=== PATIENT | male | born 1940 | race Caucasian/White ===

== ENCOUNTER 2022-06-25 08:38 | Outpatient (CLI) | payer MEDICARE, SELFPAY ==
[2022-06-25 13:48] LABS: Albumin* 4.5 g/dL (3.3-5.0)
[2022-06-25 13:49] LABS: Chloride* 103 mmol/L (96-114); Potassium* 4.5 mmol/L (3.6-5.1); Sodium* 139 mmol/L (135-149)
[2022-06-25 13:51] LABS: Bilirubin Total* 0.8 mg/dL (0.1-1.5); Carbon Dioxide* 24 mmol/L (20-32); Cholesterol* 108 mg/dL (90-199); Creatinine* 0.8 mg/dL (0.5-1.5); Estimated Glomerular Filt Rate 90 ml/min; Total Protein* 6.9 g/dL (6.0-8.3)
[2022-06-25 13:52] LABS: Alanine Aminotransferase* 24 U/L (4-50); Alkaline Phosphatase* 67 U/L (40-150); Aspartate Amino Transferase* 30 U/L (12-35); Blood Urea Nitrogen* 14 mg/dL (7-30); Glucose* 182 mg/dL (60-115); HDL Cholesterol* 19 mg/dL (>=40); LDL Cholesterol Calculated 48 mg/dL (<100); Triglycerides* 206 mg/dL (40-149)
[2022-06-25 14:00] LABS: Creatinine Urine 104.3 mg/dL
[2022-06-25 14:01] LABS: Microalbumin Creatinine Ratio 80 mg/g (0-30); Microalbumin Urine 9 mg/dL
[2022-06-25 14:18] LABS: PSA Screen* 4.11 ng/mL (0.10-4.00)
== END 2022-06-25 08:39 | disposition home or self-care (01) ==
PROVIDERS: PCP Family Medicine; Visit Provider Family Medicine
DX: E11.9 Type 2 diabetes mellitus without complications (principal); E78.00 Pure hypercholesterolemia, unspecified; K21.9 Gastro-esophageal reflux disease without esophagitis; N40.0 Benign prostatic hyperplasia without lower urinary tract symptoms; R10.9 Unspecified abdominal pain; R53.83 Other fatigue; Z12.5 Encounter for screening for malignant neoplasm of prostate
CPT/HCPCS: 80053; 80061; 82043; 82570; 84153; 84443

== ENCOUNTER 2022-11-29 11:06 | Emergency (ER) | payer MEDICARE, OTHER, SELFPAY ==
[2022-11-29 11:12] VITALS: BP 148/75; PULSE 86; RESP 20; TEMP 36.3; O2SAT 96; BMI 30.9
--- NOTE | 2022-11-29 11:53 | CRLHL7_ITS ---
For Patients: As a result of the Century Cures Act, medical imaging exams and procedure reports are released immediately into your electronic medical record. You may view this report before your referring provider. If you have questions, please contact your health care provider. INDICATION: Vertigo. TECHNIQUE: CT head without contrast. COMPARISON: None. FINDINGS: CSF spaces: Mild diffuse parenchymal volume loss, not unexpected for age. Brain parenchyma and extra-axial spaces: Mild chronic white matter ischemic disease. The eason-white differentiation is normal. No sign of mass, hemorrhage, or midline shift. No extra-axial fluid collection. Skull base and calvarium: Complete opacification of the visualized left maxillary sinus. Additional mild mucoperiosteal thickening of the right maxillary sinus and bilateral ethmoidal air cells which could suggest sinusitis. Otherwise, the visualized paranasal sinuses and mastoid air cells demonstrate no acute or significant findings. Bilateral lens replacement. The visualized orbits are grossly unremarkable. No skull fractures. IMPRESSION: No acute intracranial abnormality on this noncontrast CT scan. Please note that all CT scans at this facility use dose modulation, iterative reconstruction, and/or weight-based dosing when appropriate to reduce radiation dose to as low as reasonably achievable. Dictated by Eitan Bullock MD @ 11/29/2022 1:39:01 PM (Electronically Signed)
--- NOTE | 2022-11-29 11:56 | ED.DIZZY ---
HPI - Dizziness General Chief Complaint: Dizziness/Vertigo Stated Complaint: Dizzy, exhaustion Time Seen by Provider: 11/29/22 11:09 History of Present Illness HPI Narrative: This 82-year-old male comes in at the urging of his family members to be checked out regarding some symptoms vertigo. These occur occasionally but not constantly. He states that he felt some vertigo symptoms when he was up on a ladder recently. He does not report any chest pain, nausea, vomiting, lightheadedness, shortness of breath, or diaphoresis. He states that he exercises on a treadmill 40 minutes every day without any difficulty or symptoms. He does not have any neurologic deficit. He does not report any hearing changes. Related Data Home Medications Medication Instructions Recorded Confirmed aspirin 81 mg tablet,delayed 81 mg PO QDAY 06/25/22 11/29/22 release calcium carbonate 600 mg calcium 600 mg PO QDAY 06/25/22 11/29/22 (1,500 mg) tablet (Calcium) metformin 500 mg tablet 500 mg PO 06/25/22 08/05/22 rosuvastatin 10 mg tablet 10 mg PO DAILY 06/25/22 11/29/22 vit C 250 mg-vit E 200 unit-zinc 1 tab PO BID 06/25/22 08/05/22 12.5 mg-copper 1 [id number] tablet (ICaps AREDS2 (copper citrate)) Previous Rx's Medication Instructions Recorded omeprazole 20 mg capsule,delayed 20 mg PO QDAY #90 caps 06/25/22 release tamsulosin 0.4 mg capsule 0.4 mg PO DAILY #90 caps 06/25/22 escitalopram oxalate 10 mg tablet 10 mg PO QDAY #90 tabs 08/05/22 (Lexapro) sennosides 8.6 mg-docusate sodium 1 tab-cap PO QHS #90 tabs 08/05/22 50 mg tablet (Senokot-S) meclizine 25 mg tablet 25 mg PO QID #20 tabs 11/29/22 Allergies Allergy/AdvReac Type Severity Reaction Status Date / Time No Known Drug Allergies Allergy Verified 08/05/22 10:05 Review of Systems Status of ROS: Reports: 10 or more systems reviewed and unremarkable except as noted in History and below Narrative: Constitutional: No fevers, no weight gain or loss. Eyes: No discharge. No vision changes. HENT: No congestion, no sore throat, no ear pain. Cardiovascular: No chest pain, no palpitations. Respiratory: No shortness of breath, no wheezes, no cough. Gastrointestinal: No abdominal pain, no vomiting, no diarrhea. Genitourinary: No dysuria, no hematuria. Musculoskeletal: Normal range of motion. Skin: No rashes, no pruritis. Neurological: No weakness, sensory change, speech change. He reports episodes of vertigo. Endo/Heme/Allergies: No bruising or bleeding. No polydipsia. Pysch: no suicidality, no anxiety, no insomnia. All other systems reviewed and are negative. [facility] Medical History (Updated 11/29/22 @ 13:57 by Elver Lyn MD) Constipation by delayed colonic transit Depression Surgical History (Updated 06/25/22 @ 15:16 by Lea Aviles) History of laparoscopic cholecystectomy (03/04/12) History of spinal surgery (08/18/09) History of tonsillectomy and adenoidectomy S/P ORIF (open reduction internal fixation) fracture (08/14/09) Status post appendectomy (08/18/09) Status post bunionectomy Family History (Updated 06/21/22 @ 15:27 by Ophelia Cox) Mother Diverticulitis Father Osteoarthritis Social History (Updated 06/21/22 @ 15:28 by Ophelia Cox) Narrative: , non smoker, occasional alcohol consumption Smoking Status: Former smoker How often do you have a drink containing alcohol: 2-4 times a month AUDIT-C Alcohol total score: 2 Non-prescribed substance use: denies use Little interest or pleasure in doing things: several days Feeling down, depressed, or hopeless: several days Exam Narrative: Exam Narrative: Constitutional: Well-developed, well-nourished, no acute distress. HEENT: Normocephalic, atraumatic. Neck: Normal range of motion. Nontender. Supple. Heart: Regular. No murmurs. Normal rate. Intact distal pulses. Lungs: Clear to auscultation. No chest discomfort. No wheezes, rhonchi, or rales. Abdomen: Normal bowel sounds. Nontender. No rebound tenderness. Genitalia: Deferred. Back: No midline tenderness. Normal range of motion. Extremities: Normal range of motion. No injury. Skin: Intact. No rash. Warm. No erythema or pallor. Neurologic: No altered sensation. No weakness. Alert and oriented. No facial asymmetry. Tongue is midline. [employer] Tender strength is equal bilaterally. [id number] is normal. No pronator drift. He is able to raise each leg from the bed. He is speaking and ambulating normally. Psychiatric: No suicidality. No anxiety or depression. No insomnia. Nursing notes and vitals signs are reviewed. Const: Vital Signs, click to edit/add: Vital Signs - 24 hr 11/29/22 11:12 11/29/22 13:37 Temperature 97.4 F L Pulse Rate [Pulse Oximeter] 86 70 Respiratory Rate 20 18 Blood Pressure [Ri ght Upper Arm] 148/75 H 120/62 Pulse Oximetry 96 96 Oxygen Delivery Me thod Room Air Room Air Course Vital Signs Vital signs: Initial Vital Signs Temperature 97.4 F L 11/29/22 11:12 Temperature Source Temporal Artery Scan 11/29/22 11:12 Pulse Rate 86 11/29/22 11:12 Respiratory Rate 20 11/29/22 11:12 Blood Pressure 148/75 H 11/29/22 11:12 Blood Pressure Mean 99 11/29/22 11:12 Blood Pressure Position Supine 11/29/22 11:12 Pulse Oximetry 96 11/29/22 11:12 Oxygen Delivery Method 11/29/22 11:12 Vital Signs Temperature 97.4 F L 11/29/22 11:12 Pulse Rate 86 11/29/22 11:12 Respiratory Rate 20 11/29/22 11:12 Blood Pressure 148/75 H 11/29/22 11:12 Pulse Oximetry 96 11/29/22 11:12 Oxygen Delivery Method 11/29/22 11:12 Temperature 97.4 F L 11/29/22 11:12 Pulse Rate 70 11/29/22 13:37 Respiratory Rate 18 11/29/22 13:37 Blood Pressure 120/62 11/29/22 13:37 Pulse Oximetry 96 11/29/22 13:37 Oxygen Delivery Method 11/29/22 13:37 MDM - Dizziness MDM Narrative Medical decision making narrative: This patient comes in reporting brief episodes of vertigo that it seemed to be positional. He states that he was up on a ladder and lost some of his orientation but did not fall. He has had other episodes where he feels like the room is spinning or there is a sense of movement. He does not have any symptoms of lightheadedness. He does not use a walker or cane for ambulation. He states that he feels fine currently but comes in because family members think that he should be checked out. So a CT scan of his head was ordered which returns with no acute findings. Additionally EKG and lab results also are reassuring. These results are communicated with the patient. I did prescribe meclizine that can be used as needed for vertigo symptoms. His symptoms of vertigo or peripheral and not central in orientation. I did describe signs and symptoms of cerebrovascular accident that would indicate need for return very soon for further evaluation. He is not showing any of these signs and is okay to be discharged home. Lab Data Labs: Lab Results 11/29/22 11/29/22 Range/Units 12:05 12:05 WBC 5.77 (4.50-11.00) K/uL RBC 4.51 (4.30-5.90) m/uL Hgb 13.5 (13.5-17.5) gm/dL Hct 39.7 (37.0-53.0) % MCV 88 (80-100) fL MCH 30 (26-34) pg MCHC 34 (32-36) gm/dL RDW Coeff of Brittni 12.9 (11.5-15.5) % Plt Count 222 (140-440) K/uL Neut % (Auto) 49.5 (42.0-72.0) % Lymph % (Auto) 40.4 (20-44) % [place] % (Auto) 6.2 (0.0-11.0) % Eos % (Auto) 3.6 (0.0-7.0) % Baso % (Auto) 0.3 (0.0-3.0) % Neut # (Auto) 2.85 (1.7-7.0) K/uL Lymph # (Auto) 2.33 (0.90-2.90) K/uL [place] # (Auto) 0.40 (0.00-0.90) K/UL Eos # (Auto) 0.21 (0.00-0.50) K/uL Baso # (Auto) 0.02 (0.00-0.30) K/uL Sodium 138 (135-149) mmol/L Potassium 4.5 (3.6-5.1) mmol/L Chloride 102 (96-114) mmol/L Carbon Dioxide 27 (20-32) mmol/L BUN 12 (7-30) mg/dL Creatinine 0.8 (0.5-1.5) mg/dL Estimated Creat Clear 57.00 Estimated GFR 89 ml/min Glucose 201 H (60-115) mg/dL Calcium 8.8 (8.4-10.6) mg/dL Imaging Data CT scan - head: Radiologist's impression: No acute intracranial abnormality on this noncontrast CT scan. ECG Data Attestation: I personally reviewed and interpreted this ECG as follows: Interpretation: Normal sinus rhythm. Rate is 82 beats per minute. There are no ST or T-wave abnormalities. Discharge Plan Discharge Clinical Impression: Vertigo Patient Disposition: Home, Self-Care Condition: Stable Additional Instructions: Continue current plans. Use meclizine as needed and directed for vertigo symptoms. Follow up with MD or return if worsening. Prescriptions: New meclizine 25 mg tablet 25 mg PO QID Qty: 20 0RF No Action escitalopram oxalate [Lexapro] 10 mg tablet 10 mg PO QDAY Qty: 90 1RF sennosides-docusate sodium [Senokot-S] 8.6-50 mg tablet 1 tab-cap PO QHS Qty: 90 3RF calcium carbonate [Calcium 600] 600 mg calcium (1,500 mg) tablet 600 mg PO QDAY rosuvastatin 10 mg tablet 10 mg PO DAILY metformin 500 mg tablet 500 mg PO aspirin 81 mg tablet,delayed release (DR/EC) 81 mg PO QDAY ICaps AREDS2 (copper citrate) 250 mg-200 unit -12.5 mg-1 mg tablet 1 tab PO BID omeprazole 20 mg capsule,delayed release(DR/EC) 20 mg PO QDAY Qty: 90 1RF tamsulosin 0.4 mg capsule 0.4 mg PO DAILY Qty: 90 3RF Follow Up/Referrals: Bob Gonzalez MD [Primary Care Provider] - Stand Alone Forms: [facility] Info Instructions
[2022-11-29 12:12] LABS: Basophils Absolute Auto 0.02 K/uL (0.00-0.30); Basophils Percent Auto 0.3 % (0.0-3.0); Eosinophils Absolute Auto 0.21 K/uL (0.00-0.50); Eosinophils Percent Auto 3.6 % (0.0-7.0); Hematocrit 39.7 % (37.0-53.0); Hemoglobin* 13.5 gm/dL (13.5-17.5); Lymphocytes Absolute Auto 2.33 K/uL (0.90-2.90); Lymphocytes Percent Auto 40.4 % (20-44); Mean Corpuscular HGB Conc 34 gm/dL (32-36); Mean Corpuscular Hemoglobin 30 pg (26-34); Mean Corpuscular Volume 88 fL (80-100); Monocytes Percent Auto 6.2 % (0.0-11.0); Neutrophils Absolute Auto 2.85 K/uL (1.7-7.0); Neutrophils Percent Auto 49.5 % (42.0-72.0); Platelet Count* 222 K/uL (140-440); RDW Coefficient of Variation % 12.9 % (11.5-15.5); Red Blood Count 4.51 m/uL (4.30-5.90); White Blood Count* 5.77 K/uL (4.50-11.00)
[2022-11-29 12:26] LABS: Chloride* 102 mmol/L (96-114); Slide Review Reflex No; Sodium* 138 mmol/L (135-149)
[2022-11-29 12:27] LABS: Potassium* 4.5 mmol/L (3.6-5.1)
[2022-11-29 12:29] LABS: Carbon Dioxide* 27 mmol/L (20-32); Creatinine* 0.8 mg/dL (0.5-1.5); Estimated Glomerular Filt Rate 89 ml/min
[2022-11-29 12:30] LABS: Blood Urea Nitrogen* 12 mg/dL (7-30); Calcium* 8.8 mg/dL (8.4-10.6); Glucose* 201 mg/dL (60-115)
[2022-11-29 13:37] VITALS: BP 120/62; PULSE 70; RESP 18; O2SAT 96
== END 2022-11-29 14:11 | disposition home or self-care (01) ==
PROVIDERS: Emergency Provider Emergency Medicine Emergency Medical Services; PCP Family Medicine
DX: R42 Dizziness and giddiness (principal)
CPT/HCPCS: 36415; 70450; 80048; 85025; 93005; 99284

== ENCOUNTER 2023-04-04 22:19 | Emergency (ER) | payer MEDICARE, OTHER, SELFPAY ==
[2023-04-04] VITALS (7 sets, daily range): BP systolic 129–142; BP diastolic 72–75; PULSE 69–80; RESP 16; TEMP 36.3; O2SAT 94–97; BMI 30.6
[2023-04-04 23:06] LABS: Appearance Urine Slightly Cloudy (Clear); Bilirubin Urine Negative (Negative); Blood Urine 3+ (Negative); Color Urine Amber (Yellow); Glucose Urine Negative (Negative); Ketones Urine Negative (Negative); Leukocyte Esterase Urine Trace (Negative); Nitrite Urine Negative (Negative); Protein Urine 1+ (Negative); Urobilinogen Urine 0.2 (0.2-1.0)
--- NOTE | 2023-04-04 23:09 | CRLHL7_ITS ---
For Patients: As a result of the Century Cures Act, medical imaging exams and procedure reports are released immediately into your electronic medical record. You may view this report before your referring provider. If you have questions, please contact your health care provider. INDICATION: Abdominal pain, hematuria. TECHNIQUE: CT abdomen and pelvis without contrast. COMPARISON: 03/01/2012. FINDINGS: Lower chest: Mild bibasilar atelectasis. Coronary artery calcifications. Liver: Normal in size and attenuation. Gallbladder and bile ducts: Status post cholecystectomy. Spleen: Normal in size. Adrenal glands: Normal in size. No nodules. Pancreas: Unremarkable. No mass or inflammation. Kidneys: Normal in size. No stones or hydronephrosis. GI tract: Unremarkable. Normal in caliber. Appendix is surgically absent. Lymph nodes: No lymphadenopathy. Vasculature: Scattered atherosclerotic calcifications. Abdominal aorta is normal in caliber. Abdominal wall/Omentum/Peritoneum: Unremarkable. No free air or significant free fluid. Pelvis: Marked prostatomegaly. Posterior urinary bladder wall nodularity. Bones: Unremarkable for age. IMPRESSION: 1. Posterior urinary bladder wall nodularity which, which may be due to median lobe hypertrophy versus underlying lesion. Consider correlation with direct visualization. 2. Marked prostatomegaly. Consider correlation with serum PSA levels. 3. Otherwise no acute abdominal or pelvic abnormality on this noncontrast examination. Please note that all CT scans at this facility use dose modulation, iterative reconstruction, and/or weight-based dosing when appropriate to reduce radiation dose to as low as reasonably achievable. Dictated by Manfred Zhang MD @ 04/05/2023 12:19:18 AM (Electronically Signed)
[2023-04-04 23:20] LABS: RBC Urine >100 (0-2); WBC Urine 0-2 (0-5)
[2023-04-04 23:39] LABS: Basophils Absolute Auto 0.03 K/uL (0.00-0.30); Basophils Percent Auto 0.4 % (0.0-3.0); Eosinophils Percent Auto 4.3 % (0.0-7.0); Hematocrit 39.4 % (37.0-53.0); Hemoglobin* 13.2 gm/dL (13.5-17.5); Immature Granulocytes Abs Auto 0.01 K/uL (0.00-0.30); Immature Granulocytes Pct Auto 0.1 %; Lymphocytes Percent Auto 41.3 % (20-44); Mean Corpuscular HGB Conc 34 gm/dL (32-36); Mean Corpuscular Hemoglobin 30 pg (26-34); Mean Corpuscular Volume 88 fL (80-100); Monocytes Percent Auto 7.7 % (0.0-11.0); Neutrophils Absolute Auto 3.25 K/uL (1.7-7.0); Neutrophils Percent Auto 46.2 % (42.0-72.0); Platelet Count* 215 K/uL (140-440); RDW Coefficient of Variation % 13.2 % (11.5-15.5); Red Blood Count 4.47 m/uL (4.30-5.90); White Blood Count* 7.03 K/uL (4.50-11.00)
[2023-04-04] MEDS: 0.9 % SODIUM CHLORIDE 1000 ml 1,000 ML IV (23:40)
[2023-04-04 23:41] LABS: Slide Review Reflex No
--- NOTE | 2023-04-04 23:49 | ED_ITS ---
HPI - Male Genitourinary General Chief complaint: Urogenital Problems, Male Stated complaint: Peeing out blood Time Seen by Provider: 04/04/23 23:04 History of Present Illness HPI Narrative: Patient is a 82-year-old gentleman who presents with gross hematuria. Patient had exquisite mid abdominal pain earlier today. That seems to have resolved. Patient is been very active today including walking on the treadmill and feels like he may have overdone it. Patient has no fevers no chills no night sweats no cough no shortness of breath. He feels washed out but has no further abdominal pain. Patient is status post TURP and does take a baby aspirin daily. He has had no history of kidney stones and otherwise been in his usual good state of health. Related Data Home Medications Medication Instructions Recorded Confirmed aspirin 81 mg tablet,delayed 81 mg PO QDAY 06/25/22 04/04/23 release calcium carbonate 600 mg calcium 600 mg PO QDAY 06/25/22 04/04/23 (1,500 mg) tablet (Calcium) metformin 500 mg tablet 500 mg PO 06/25/22 08/05/22 rosuvastatin 10 mg tablet 10 mg PO DAILY 06/25/22 04/04/23 vit C 250 mg-vit E 200 unit-zinc 1 tab PO BID 06/25/22 04/04/23 12.5 mg-copper 1 [id number] tablet (ICaps AREDS2 (copper citrate)) carboxymethylcellulose sodium 1 % 1 drp ophthalmic (eye) DAILY 04/04/23 04/04/23 eye liquid gel drops (Lubricant Dry Eye Relief) Previous Rx's Medication Instructions Recorded omeprazole 20 mg capsule,delayed 20 mg PO QDAY #90 caps 06/25/22 release tamsulosin 0.4 mg capsule 0.4 mg PO DAILY #90 caps 06/25/22 escitalopram oxalate 10 mg tablet 10 mg PO QDAY #90 tabs 08/05/22 (Lexapro) sennosides 8.6 mg-docusate sodium 1 tab-cap PO QHS #90 tabs 08/05/22 50 mg tablet (Senokot-S) Allergies Allergy/AdvReac Type Severity Reaction Status Date / Time No Known Drug Allergies Allergy Verified 04/04/23 22:51 Review of Systems Status of ROS: Reports: 10 or more systems reviewed and unremarkable except as noted in History and below [facility] Medical History Constipation by delayed colonic transit ?K59.01 - Slow transit constipation (ICD-10) Depression ?F32.A - Depression, unspecified (ICD-10) Surgical History S/P ORIF (open reduction internal fixation) fracture (08/14/09) ?Z98.890 - Other specified postprocedural states (ICD-10) ?Z87.81 - Personal history of (healed) traumatic fracture (ICD-10) Status post bunionectomy ?Z98.890 - Other specified postprocedural states (ICD-10) Status post appendectomy (08/18/09) ?Z90.49 - Acquired absence of other specified parts of digestive tract (ICD- 10) History of tonsillectomy and adenoidectomy ?Z90.89 - Acquired absence of other organs (ICD-10) History of spinal surgery (08/18/09) ?Z98.890 - Other specified postprocedural states (ICD-10) History of laparoscopic cholecystectomy (03/04/12) ?Z90.49 - Acquired absence of other specified parts of digestive tract (ICD- 10) Family History Mother Diverticulitis Father Osteoarthritis Social History Narrative: , non smoker, occasional alcohol consumption Smoking Status: Former smoker Do you use any of these nicotine containing products: None Second hand tobacco smoke exposure: No How often do you have a drink containing alcohol: 2-4 times a month AUDIT-C Alcohol total score: 2 Non-prescribed substance use: denies use Little interest or pleasure in doing things: several days Feeling down, depressed, or hopeless: several days Exam 2 Narrative: Exam Narrative: EXAM GENERAL: Patient appears comfortable and well. EYES: No scleral icterus. LYMPH: No supraclavicular or cervical lymphadenopathy. SKIN: Visible skin seen during exam normal or with benign process only. EXT: No dependent lower extremity pedal edema. HEART: Regular rate and rhythm with no murmurs, rubs, or gallops. LUNGS: Clear to auscultation bilaterally with no crackles or wheezes. ABD: Soft, non tender, non distended. PSYCH: Good eye contact, speech is not pressured. Const: Vital Signs, click to edit/add: Vital Signs - 24 hr 04/04/23 22:43 04/04/23 23:00 04/04/23 23:01 Temperature 97.3 F L Pulse Rate 80 72 Pulse Rate [Pulse Oximeter] 72 Respiratory Rate 16 Blood Pressure 142/75 H Blood Pressure [Ri ght Upper Arm] 139/73 Pulse Oximetry 96 94 96 Oxygen Delivery Me thod Room Air Room Air 04/04/23 23:15 04/04/23 23:30 04/04/23 23:32 Temperature Pulse Rate 73 78 76 Pulse Rate [Pulse Oximeter] Respiratory Rate Blood Pressure 129/72 Blood Pressure [Ri ght Upper Arm] Pulse Oximetry 97 96 96 Oxygen Delivery Me thod 04/04/23 23:59 04/05/23 00:00 04/05/23 00:01 Temperature Pulse Rate 69 71 70 Pulse Rate [Pulse Oximeter] Respiratory Rate Blood Pressure 120/72 Blood Pressure [Ri ght Upper Arm] Pulse Oximetry 95 96 96 Oxygen Delivery Me thod 04/05/23 00:15 04/05/23 00:30 Temperature Pulse Rate 67 68 Pulse Rate [Pulse Oximeter] Respiratory Rate Blood Pressure Blood Pressure [Ri ght Upper Arm] Pulse Oximetry 95 96 Oxygen Delivery Me thod Course Course Hospital Course: Hydration begun with normal saline. CBC comprehensive metabolic panel UA CT of the abdomen pelvis ordered. Vital Signs Vital signs: Initial Vital Signs Temperature 97.3 F L 04/04/23 22:43 Temperature Source Temporal Artery Scan 04/04/23 22:43 Pulse Rate 72 04/04/23 22:43 Respiratory Rate 16 04/04/23 22:43 Blood Pressure 139/73 04/04/23 22:43 Blood Pressure Mean 95 04/04/23 22:43 Blood Pressure Position Supine 04/04/23 22:43 Pulse Oximetry 96 04/04/23 22:43 Oxygen Delivery Method Room Air 04/04/23 22:43 Vital Signs Temperature 97.3 F L 04/04/23 22:43 Pulse Rate 72 04/04/23 22:43 Respiratory Rate 16 04/04/23 22:43 Blood Pressure 139/73 04/04/23 22:43 Pulse Oximetry 96 04/04/23 22:43 Oxygen Delivery Method Room Air 04/04/23 22:43 Temperature 97.3 F L 04/04/23 22:43 Pulse Rate 68 04/05/23 00:30 Respiratory Rate 16 04/04/23 22:43 Blood Pressure 120/72 04/05/23 00:01 Pulse Oximetry 96 04/05/23 00:30 Oxygen Delivery Method Room Air 04/04/23 23:00 MDM - Male Genitourinary MDM Narrative Medical decision making narrative: Patient is a 82-year-old gentleman comes in today stating that he has been urinating blood today. He feels overall kind of washed out like he has been working too hard. I did do CT of the abdomen pelvis showing no kidney stones but evidence of some nodularity in his bladder. Patient shows no signs of anemia his coags are unremarkable. Electrolytes are stable. Patient was given a L of normal saline and at this time is discharged home with outpatient followup discontinuation of his aspirin and follow-up with his primary physician to arrange Urology workup. He will return if symptoms worsen in the interim. Differential Diagnosis Differential diagnosis: Likely urinary tract infection, urethritis, prostatitis and acute retention of urine Lab Data Labs: Lab Results 04/04/23 04/04/23 Range/Units 22:55 23:30 WBC 7.03 (4.50-11.00) K/uL RBC 4.47 (4.30-5.90) m/uL Hgb 13.2 L (13.5-17.5) gm/dL Hct 39.4 (37.0-53.0) % MCV 88 (80-100) fL MCH 30 (26-34) pg MCHC 34 (32-36) gm/dL RDW Coeff of Brittni 13.2 (11.5-15.5) % Plt Count 215 (140-440) K/uL Neut % (Auto) 46.2 (42.0-72.0) % Lymph % (Auto) 41.3 (20-44) % [place] % (Auto) 7.7 (0.0-11.0) % Eos % (Auto) 4.3 (0.0-7.0) % Baso % (Auto) 0.4 (0.0-3.0) % Neut # (Auto) 3.25 (1.7-7.0) K/uL Lymph # (Auto) 2.90 (0.90-2.90) K/uL [place] # (Auto) 0.50 (0.00-0.90) K/UL Eos # (Auto) 0.30 (0.00-0.50) K/uL Baso # (Auto) 0.03 (0.00-0.30) K/uL Abs Immat Gran (auto) 0.01 (0.00-0.30) K/uL Imm/Tot Granulo (auto) 0.1 % INR 0.90 L (0.91-1.10) APTT 29 (23-33) Seconds Sodium 137 (135-149) mmol/L Potassium 3.6 (3.6-5.1) mmol/L Chloride 102 (96-114) mmol/L Carbon Dioxide 26 (20-32) mmol/L BUN 18 (7-30) mg/dL Creatinine 0.9 (0.5-1.5) mg/dL Estimated Creat Clear 57.00 Estimated GFR 86 ml/min Glucose 189 H (60-115) mg/dL Calcium 8.6 (8.4-10.6) mg/dL Total Bilirubin 0.4 (0.1-1.5) mg/dL AST 31 (12-35) U/L ALT 28 (4-50) U/L Alkaline Phosphatase 60 (40-150) U/L Total Protein 6.7 (6.0-8.3) g/dL Albumin 4.0 (3.3-5.0) g/dL Urine Color Tamra A (Yellow) Urine Appearance Slightly Cloudy A (Clear) Urine pH 6.0 (5.0-8.5) Ur Specific [place] 1.020 (1.000-1.030) Urine Protein 1+ A (Negative) Urine Glucose (UA) Negative (Negative) Urine Ketones Negative (Negative) Urine Blood 3+ A (Negative) Urine Nitrite Negative (Negative) Urine Bilirubin Negative (Negative) Urine Urobilinogen 0.2 (0.2-1.0) Ur Leukocyte Esterase Trace A (Negative) Urine RBC >100 A (0-2) Urine WBC 0-2 (0-5) Ur Squamous Epith Cells None (None-Few) Urine Bacteria None (None) Discharge Plan Discharge Clinical Impression: Hematuria Patient Disposition: Home, Self-Care Condition: Stable Instructions: Hematuria (ED) Additional Instructions: Stop aspirin Follow-up with your doctor this week to arrange Urology follow-up. Activity Level: No Restrictions Discharge Diet: Regular Prescriptions: No Action escitalopram oxalate [Lexapro] 10 mg tablet 10 mg PO QDAY Qty: 90 1RF Hold Instructions: Order Change sennosides-docusate sodium [Senokot-S] 8.6-50 mg tablet 1 tab-cap PO QHS Qty: 90 3RF Hold Instructions: Order Change calcium carbonate [Calcium 600] 600 mg calcium (1,500 mg) tablet 600 mg PO QDAY rosuvastatin 10 mg tablet 10 mg PO DAILY Hold Instructions: Ran out of medication metformin 500 mg tablet 500 mg PO aspirin 81 mg tablet,delayed release (DR/EC) 81 mg PO QDAY ICaps AREDS2 (copper citrate) 250 mg-200 unit -12.5 mg-1 mg tablet 1 tab PO BID Hold Instructions: Order Change omeprazole 20 mg capsule,delayed release(DR/EC) 20 mg PO QDAY Qty: 90 1RF Hold Instructions: Order Change tamsulosin 0.4 mg capsule 0.4 mg PO DAILY Qty: 90 3RF carboxymethylcellulose sodium [Lubricant Dry Eye Relief] 1 % drops, liquid gel 1 drp ophthalmic (eye) DAILY Follow Up/Referrals: Bob Gonzalez MD [Primary Care Provider] - Stand Alone Forms: [employer] Info Instructions
[2023-04-04 23:52] LABS: Chloride* 102 mmol/L (96-114)
[2023-04-04 23:53] LABS: Potassium* 3.6 mmol/L (3.6-5.1); Sodium* 137 mmol/L (135-149)
[2023-04-04 23:55] LABS: Aspartate Amino Transferase* 31 U/L (12-35); Bilirubin Total* 0.4 mg/dL (0.1-1.5); Carbon Dioxide* 26 mmol/L (20-32); Creatinine* 0.9 mg/dL (0.5-1.5); Estimated Glomerular Filt Rate 86 ml/min; Prothrombin Time 12.7 Seconds; Total Protein* 6.7 g/dL (6.0-8.3)
[2023-04-04 23:56] LABS: Alanine Aminotransferase* 28 U/L (4-50); Alkaline Phosphatase* 60 U/L (40-150); Blood Urea Nitrogen* 18 mg/dL (7-30); Calcium* 8.6 mg/dL (8.4-10.6); Glucose* 189 mg/dL (60-115); Partial Thromboplastin Time* 29 Seconds (23-33)
[2023-04-05] VITALS: PULSE 71; O2SAT 96
[2023-04-05 00:01] VITALS: BP 120/72; PULSE 70; O2SAT 96
[2023-04-05 00:15] VITALS: PULSE 67; O2SAT 95
[2023-04-05 00:30] VITALS: PULSE 68; O2SAT 96
== END 2023-04-05 00:44 | disposition home or self-care (01) ==
PROVIDERS: Emergency Provider Internal Medicine; PCP Family Medicine
DX: R31.9 Hematuria, unspecified (principal)
CPT/HCPCS: 36415; 74176; 80053; 81001; 81003; 85025; 85610; 85730; 96360; 99283; 99284; J7030

== ENCOUNTER 2023-04-11 11:35 | Outpatient (CLI) | payer MEDICARE, OTHER, SELFPAY | END 2023-04-11 11:36 | disposition home or self-care (01) | LOC: LKVREF 11:37 | PROVIDERS: PCP Family Medicine; Visit Provider Family Medicine | DX: R31.9 Hematuria, unspecified (principal); E11.9 Type 2 diabetes mellitus without complications; N40.0 Benign prostatic hyperplasia without lower urinary tract symptoms | CPT/HCPCS: 84153 ==

== ENCOUNTER 2023-07-25 08:47 | Outpatient (CLI) | payer MEDICARE, OTHER, SELFPAY | END 2023-07-25 08:48 | disposition home or self-care (01) | PROVIDERS: PCP Family Medicine; Visit Provider Family Medicine | DX: R53.83 Other fatigue (principal); E78.00 Pure hypercholesterolemia, unspecified; E11.9 Type 2 diabetes mellitus without complications; M10.9 Gout, unspecified; M81.0 Age-related osteoporosis without current pathological fracture; R33.8 Other retention of urine | CPT/HCPCS: 80053; 80061; 82043; 82570 ==

== ENCOUNTER 2024-01-27 08:32 | Outpatient (CLI) | payer MEDICARE, OTHER, SELFPAY ==
--- OUTSIDE RECORDS SUMMARY | 2024-01-27 08:35 | XMS_ITS | Clinical Summary ---
Author Name Unknown Organization [employer] [facility] Address [place], [place] [address] Care Team Providers Care Epic Prelude Analyst Name Role Phone Isaac Dennison MD Primary Care Provider + Allergies No known active allergies Medications Medication Sig Dispensed Refills Start Date End Date Status predniSONE (DELTASONE) 5 mg tablet Take 1 tablet by mouth once daily with a meal. 0 05/28/2017 Active tamsulosin (Flomax) 0.4 mg capsuleIndications: Benign non-nodular prostatic hyperplasia with lower urinary tract symptoms Take one tablet by mouth twice day. 180 capsule. 08/06/2021 Active clotrimazole (LOTRIMIN) 1 % creamIndications:Ba lanitis Apply topically to affected area(s) 2 times daily. 45 g 08/06/2021 Active Active Problems Problem Noted Date Diagnosed Date Benign non-nodular prostatic hyperplasia with lower urinary tract symptoms 05/28/2017 Incomplete bladder emptying 05/28/2017 Family History Medical History Relation Name Comments Genetic Other macular degener ation - father Relation Name Status Comments Other Social History Tobacco Use Types Packs/Day Years Used Date Smoking Tobacco: Never Assessed Social Connections Answer Date Recorded Frequency of Communication with Friends and Fami ly Not on file 09/06/2021 Financial Resource Strain Answer Date R ecorded Difficulty of Paying Living Expenses Not on file 09/06/2021 Difficulty of Paying Living Expenses Not on file 09/06/2021 Sex and Gender Information Value Date Recorded Sex Assigned at Not on file Gender Identity Not on file Sexual Orientation Not on file Obstetrics History Last Filed Vital Signs Vital Sign Reading Time Taken Comments Blood Pressure 136/80 08/06/2021 7:51 AM TRAFFIC OBSERVER Pulse 90 08/06/2021 7:51 AM TRAFFIC OBSERVER Temperature - - Respiratory Rate - - Oxygen Saturation 97% 08/06/2021 7:51 AM TRAFFIC OBSERVER Inhaled Oxygen Concentration - - Weight 92.9 kg (204 lb 14.4 oz) 08/06/2021 7:51 AM TRAFFIC OBSERVER Height 169 cm (5' 6.54) 05/28/2017 2:24 PM CDT Body Mass Index 32.54 05/28/2017 2:24 PM CDT Plan of Treatment Health Maintenance Due Date Last Done Comments Tdap 1953 Depression screening for age 12+ 1954 Tetanus booster 1962 Zoster (shingles) series for age 50+ (1 of 2) 09/02/19 92 Medicare Wellness for age 65+ 2007 Pneumococcal series for age 65+ (1 of 1 - PCV) 007 BMI (ht and wt on same day) for age 18+ 05/28/2018 0 05/28/2017 COVID-19 vaccine series (2022- season) 3 Influenza for age 65+ 05/16/2024 Care Teams Epic Prelude Analyst Relationship Specialty Start Date End Date Isaac Dennison MD PCP - General Family Practice 05/28/17
== END 2024-01-27 08:33 | disposition home or self-care (01) ==
LOC: LKVREF 08:34
PROVIDERS: PCP Family Medicine; Visit Provider Family Medicine
DX: E11.65 Type 2 diabetes mellitus with hyperglycemia (principal); Z79.84 Long term (current) use of oral hypoglycemic drugs
CPT/HCPCS: 80053

== ENCOUNTER 2024-04-13 13:19 | Outpatient (CLI) | payer MEDICARE, OTHER, SELFPAY ==
--- OUTSIDE RECORDS SUMMARY | 2024-04-13 13:25 | XMS_ITS | Clinical Summary ---
Author Organization [facility] Address [place], [place] [address] Care Team Providers Care Mental Health Aide Name Role Phone Isaac Dennison MD Primary [...] Comments Blood Pressure 136/80 08/06/2021 7:51 AM TRANSPORT NURSE Pulse 90 08/06/2021 7:51 AM TRANSPORT NURSE Temperature - - Respiratory Rate - - Oxygen Saturation 97% 08/06/2021 7:51 AM TRANSPORT NURSE Inhaled Oxygen Concentration - - Weight 92.9 kg (204 lb 14.4 oz) 08/06/2021 7:51 AM TRANSPORT NURSE Height 169 cm (5' 6.54) 05/28/2017 2:24 [...] 18+ 05/28/2018 0 05/28/2017 COVID-19 vaccine series ( - 2022- season) 3 Influenza for age 65+ 05/16/2024 Care Teams Mental Health Aide Relationship Specialty Start Date End Date Isaac Dennison MD PCP - General Family Practice 05/28/17
--- NOTE | 2024-04-13 14:00 | CRLHL7_ITS ---
For Patients: As a result of the Century Cures Act, medical imaging exams and procedure reports are released immediately into your electronic medical record. You may view this report before your referring provider. If you have questions, please contact your health care provider. INDICATION: Abdominal pain; chronic constipation. COMPARISON: CT chest, abdomen and pelvis March 01, 2012; CT abdomen and pelvis April 04, 2023. TECHNIQUE: CT abdomen and pelvis with intravenous contrast; coronal and sagittal reformats. FINDINGS: No abnormal pulmonary nodules through the lung bases. No evidence of pleural effusion. No focal hepatic or splenic pathology. Mild diffuse fatty infiltration of the liver. No pancreatic pathology. Status post cholecystectomy. No adrenal pathology. No kidney stones or obstructive uropathy. 1 cm cortical cyst lower pole left kidney. No kidney stones or obstructive uropathy. No retroperitoneal lymphadenopathy. No evidence of abdominal or pelvic ascites. Diverticulosis sigmoid colon without any CT evidence of diverticulitis or abscess. Markedly enlarged prostate gland. No radiographic evidence of constipation. Duodenal diverticula. IMPRESSION: 1. Mild diffuse fatty infiltration of the liver. 2. No radiographic evidence of constipation. 3. Markedly enlarged prostate gland. 4. Duodenal diverticula. Please note that all CT scans at this facility use dose modulation, iterative reconstruction, and/or weight-based dosing when appropriate to reduce radiation dose to as low as reasonably achievable. Dictated by Emma Kevin MD @ 04/16/2024 8:33:04 AM (Electronically Signed)
[2024-04-13 14:29] LABS: Creatinine* 0.8 mg/dL (0.5-1.5); Estimated Glomerular Filt Rate 89 ml/min
== END 2024-04-13 13:20 | disposition home or self-care (01) ==
LOC: CT 13:21
PROVIDERS: PCP Family Medicine; Visit Provider Student in an Organized Health Care Education/Training Program
DX: R10.84 Generalized abdominal pain (principal); K76.0 Fatty (change of) liver, not elsewhere classified; K57.10 Diverticulosis of small intestine without perforation or abscess without bleeding; N40.0 Benign prostatic hyperplasia without lower urinary tract symptoms; K59.09 Other constipation
CPT/HCPCS: 36415; 74177; 82565; Q9967

== ENCOUNTER 2024-05-06 10:11 | Outpatient (CLI) | payer MEDICARE, OTHER, SELFPAY ==
--- OUTSIDE RECORDS SUMMARY | 2024-05-06 10:17 | XMS_ITS | Clinical Summary ---
Author Organization [facility] Address [place], [place] [address] Care Team Providers Care Chemists Name Role Phone Isaac Dennison MD Primary [...] Comments Blood Pressure 136/80 08/06/2021 7:51 AM ROUTE SERVICE MANAGER Pulse 90 08/06/2021 7:51 AM ROUTE SERVICE MANAGER Temperature - - Respiratory Rate - - Oxygen Saturation 97% 08/06/2021 7:51 AM ROUTE SERVICE MANAGER Inhaled Oxygen Concentration - - Weight 92.9 kg (204 lb 14.4 oz) 08/06/2021 7:51 AM ROUTE SERVICE MANAGER Height 169 cm (5' 6.54) 05/28/2017 2:24 [...] Influenza for age 65+ 05/16/2024 Care Teams Chemists Relationship Specialty Start Date End Date Isaac Dennison MD PCP - General Family Practice 05/28/17
== END 2024-05-06 10:12 | disposition home or self-care (01) ==
PROVIDERS: PCP Family Medicine; Visit Provider Family Medicine
DX: R53.83 Other fatigue (principal); M81.0 Age-related osteoporosis without current pathological fracture; F32.A Depression, unspecified
CPT/HCPCS: 82306; 84443

== ENCOUNTER 2024-07-29 10:43 | Outpatient (CLI) | payer MEDICARE, OTHER, SELFPAY ==
--- OUTSIDE RECORDS SUMMARY | 2024-07-29 10:46 | XMS_ITS | Clinical Summary ---
Author Organization [facility] Address [place], [place] [address] Care Team Providers Care Certified Ski Patroller Name Role Phone Isaac Dennison MD Primary [...] Comments Blood Pressure 136/80 08/06/2021 7:51 AM QUALITY ASSURANCE Pulse 90 08/06/2021 7:51 AM QUALITY ASSURANCE Temperature - - Respiratory Rate - - Oxygen Saturation 97% 08/06/2021 7:51 AM QUALITY ASSURANCE Inhaled Oxygen Concentration - - Weight 92.9 kg (204 lb 14.4 oz) 08/06/2021 7:51 AM QUALITY ASSURANCE Height 169 cm (5' 6.54) 05/28/2017 2:24 [...] 65+ (1 of 1 - PCV) 007 RSV vaccine for adults or pr egnancy (1 - 1-dose 75+ series) 2017 BMI (ht and wt on same day) for age 18+ 05/28/2018 0 05/28/2017 COVID-19 vaccine series ( - 2023- season) 4 Influenza for age 65+ 05/16/2024 Care Teams Certified Ski Patroller Relationship Specialty Start Date End Date Isaac Dennison MD PCP - General Family Practice 05/28/17
== END 2024-07-29 10:44 | disposition home or self-care (01) ==
LOC: LKVREF 10:44
PROVIDERS: PCP Family Medicine; Visit Provider Family Medicine
DX: Z00.00 Encounter for general adult medical examination without abnormal findings (principal); E11.9 Type 2 diabetes mellitus without complications; E78.00 Pure hypercholesterolemia, unspecified; R53.83 Other fatigue; R33.8 Other retention of urine
CPT/HCPCS: 80053; 80061; 82043; 82570

== ENCOUNTER 2024-12-06 13:45 | Outpatient (RCR) | payer MEDICARE, OTHER, SELFPAY ==
--- NOTE | 2024-11-22 17:32 | PT.OPE ---
PT [facility] Outpatient Eval PT [facility] Outpatient Eval Start: 11/22/24 16:32 Freq: Status: Active Protocol: Document 11/22/24 16:33 JOSUÉ (Rec: 11/22/24 16:47 JOSUÉ [id number]) E-signed By Zain Nino, PT, ATC Physical Therapy Outpatient Evaluation Insurance Information Insurance Name Medicare B Medical Diagnosis M25.559 pain in unspecified hip Treating Diagnosis R>L hip pain Referring MD Gonzalez Subjective Preferred Name Lorrie Subjective Lorrie reports almost debilitating R and L hip pain that limits both standing and walking durations. Chronic, progressively worsening over past few months. Stand and walk duration less than 10 minutes making walking dog, shopping and performing ADL's difficult. 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 Feels his shuffling gait pattern has become more advanced in recent months making him at times feel unsteady. No falls reported. Date of Last Physician Visit 11/11/24 Current Work Status Retired Precautions Weight Bearing Status Full Weight Bearing Therapy Limitations/Systems Review Not Limited Objective Range of Motion Significant tightness in R > L hips into Ryad-OO-Rcicv direction. Strength R and L hip abductor strength 4/5, remaining patterns 4+/5 Palpation Gluteus johnny and medius, TFL, quadratus lumborum and lumbar paraspinals have increased tone/spasm presence. R>L Balance & Gait Complete absence of any trunk rotation or UE swing during gait cycle. Abbreviated step length. Posture Increased lumbar lordosis, minimal gluteal muscle presence. Assessment Assessment/Impression Lorrie is a pleasant 84 year old man who's physical function with all ADL's and transitional mobility is shadowed by his tight musculature and lack of hip- trunk flexibility. This extreme tightness creates a definite limitation with his postural sway parameters making him a higher fall risk. I recommend skilled PT to address this hip and trunk tightness through manual therapy and therapeutic exercise. Gait training and balance challenges should also be part of his program. Plan of Care Rehabilitation Potential Good Coordination/Communication With Referral Source Frequency/Duration 1-2x per week 6-12 weeks Patient Will Be Discharged From Therapy Independent w/HEP, Independently Progressing Discharge Plan Comments 1.Independent HEP performance to lessen hip tightness and increase strength. 2.Increase standing duration to 10 minutes or greater while conversing with friends. 3.To walk x 15 min.s allowing return of walking dog and grocery shopping. 4.Increase R and L hip strength by 1/2 grade facilitate improved and less compensated bed mobility and transfers. Evaluation Billing Untimed Code Treatment Minutes 30 PT Eval No Charge No Complexity Low Certification Information Initial Certification Date 11/22/24 Ending Certification Date 02/22/25 Provider Signature Required Yes Provider Signature Shows Agreement With POC & Medical Necessity Physician NPI Number Write NPI# Here Physician Comment/Change : Physician Signature & Date Requested Please Sign/Date Here
== END 2025-04-05 23:59 | disposition home or self-care (01) ==
PROVIDERS: PCP Family Medicine; Visit Provider Family Medicine
DX: M25.552 Pain in left hip (principal); M25.551 Pain in right hip; R26.2 Difficulty in walking, not elsewhere classified; Z51.89 Encounter for other specified aftercare
CPT/HCPCS: 97110; 97140; 97161

== ENCOUNTER 2025-07-14 14:28 | Emergency (ER) | payer MEDICARE, OTHER, SELFPAY ==
[2025-07-14 14:36] VITALS: BP 127/79; PULSE 78; RESP 16; TEMP 36.2; O2SAT 95; BMI 30.7
--- NOTE | 2025-07-14 14:56 | CRLHL7_ITS ---
For Patients: As a result of the Century Cures Act, medical imaging exams and procedure reports are released immediately into your electronic medical record. You may view this report before your referring provider. If you have questions, please contact your health care provider. INDICATION: Scrotal and left upper leg pain, erythema, and swelling COMPARISON: None. TECHNIQUE: Sonographic evaluation of the scrotum was performed utilizing eason-scale and color/spectral Doppler imaging techniques. FINDINGS: Right testicle measures 3 x 2.9 x 2.8 centimeters. Left testicle measures 2.7 x 2.3 x 2.6 centimeters. Normal echogenicity in the testicles. Vascular flow is detected in the bilateral testicles. Small right hydrocele. Small left hydrocele. Unremarkable appearance of the bilateral epididymis. Per waxed bag machine operator, there is a area of clinically apparent drainage associated with the region lateral and posterior to the left testicle. The aforementioned region demonstrates hyperemia in the subcutaneous fat as well as a small amount of nonspecific heterogeneity including a 2 millimeter linear echogenic focus associated with the skin. IMPRESSION: Small bilateral hydrocele. Per waxed bag machine operator, there is a area of clinically apparent drainage associated with the region lateral and posterior to the left testicle. The aforementioned region demonstrates hyperemia in the subcutaneous fat as well as a small amount of heterogeneous echogenicity including a 2 millimeter linear echogenic focus associated with the skin. Although these findings are sonographically nonspecific, the presence of hyperemia could represent edema or infection and should be correlated with physical examination. No drainable fluid collection is detected. Dictated by Jimmy Prather MD @ 07/14/2025 4:31:00 PM (Electronically Signed)
--- NOTE | 2025-07-14 15:03 | ED_ITS ---
HPI - General Adult General Chief complaint: Unspecified Complaint, Adult Stated complaint: something on leg Time Seen by Provider: 07/14/25 14:37 History of Present Illness HPI narrative: This 84-year-old male comes here from a clinic appointment because of a scrotal abscess and now on other site in his upper left leg that shows sign of infection. These symptoms started about 10 days ago. The patient did see a urologist 6 days ago who examined his scrotum but not his upper leg. He was prescribed Bactrim. The patient states that his pain and redness and swelling in the scrotum and perineum area has improved and yet is still present. The sore on his left upper posterior leg has not improved. These areas are rather tender. He does not report any fevers. He does have diabetes but states that his blood glucose has been well controlled. Related Data Home Medications ?Medication ?Instructions ?Recorded ?Confirmed vit C 250 mg-vit E 200 unit-zinc 1 tab PO BID 06/25/22 04/15/25 12.5 mg-copper 1 [id number] tablet (ICaps AREDS2 (copper citrate)) Held on 04/04/23. Instructions: Order Change carboxymethylcellulose sodium 1 % 1 drp ophthalmic (ey e) DAILY 04/04/23 04/15/25 eye liquid gel drops (Lubricant Dry Eye Relief) finasteride 5 mg tablet 5 mg PO DAILY 07/25/2304/15 tadalafil 5 mg tablet 5 mg PO DAILY 04/15/2504/15 sulfamethoxazole 800 1 tab PO Q12H 07/14/2507/14 mg-trimethoprim 160 mg tablet Previous Rx's ?Medication ?Instructions ?Recorded omeprazole 20 mg capsule,delayed 20 mg PO QDAY #90 cap s 06/25/22 release Held on 04/04/23. Instructions: Order Change tamsulosin 0.4 mg capsule 0.4 mg PO DAILY #90 caps 07/07 psyllium husk 0.4 gram capsule 0.8 g (2 x 0.4 gram) PO QDAY #60 01/27/24 (Metamucil) caps rosuvastatin 10 mg tablet 10 mg PO DAILY #90 tabs 07/16 01/06 calcium ER 600 mg (as carb,cit)-D3 2 tab PO QDAY #180 tabs 11/11/24 12.5 mcg (500 unit) tablet, ext.rel (Citracal-D3 Slow Release) ibandronate 150 mg tablet 150 mg PO .q month #3 tabs 0 11/11/24 metformin 500 mg tablet,extended 500 mg PO BID #180 ta bs 03/08/25 release 24 hr sertraline 25 mg tablet (Zoloft) 25 mg PO QDAY #90 tab s 03/08/25 sennosides 8.6 mg-docusate sodium 2 tab-cap (2 x 8.6-5 0 mg) PO QPM 07/04/25 50 mg tablet (Stimulant Laxative #60 tabs Plus) clindamycin HCl 300 mg capsule 300 mg PO TID #30 caps 07/14/25 Allergies Allergy/AdvReac Type Severity Reaction Status Date / Time No Known Drug Allergies Allergy Verified 07/14/25 13:12 Review of Systems Status of ROS: Reports: 10 or more systems reviewed and unremarkable except as noted in History and below Narrative: Constitutional: No fevers, no weight gain or loss. Eyes: No discharge. No vision changes. HENT: No congestion, no sore throat, no ear pain. Cardiovascular: No chest pain, no palpitations. Respiratory: No shortness of breath, no wheezes, no cough. Gastrointestinal: No abdominal pain, no vomiting, no diarrhea. Genitourinary: No dysuria, no hematuria. Scrotal pain and swelling as described above. Musculoskeletal: Normal range of motion. Skin: No rashes, no pruritis. Neurological: No dizziness, weakness, sensory change, speech change. Endo/Heme/Allergies: No bruising or bleeding. No polydipsia. Pysch: no suicidality, no anxiety, no insomnia. All other systems reviewed and are negative. [facility] Medical History (Updated 07/14/25 @ 16:11 by Elver Lyn MD) Encounter for annual wellness visit (AWV) in Medicare patient ?Z00.00 - Encounter for general adult medical examination without abnormal findings (ICD-10) Constipation by delayed colonic transit ?K59.01 - Slow transit constipation (ICD-10) Depression ?F32.A - Depression, unspecified (ICD-10) Surgical History S/P ORIF (open reduction internal fixation) fracture (08/14/09) ?Z98.890 - Other specified postprocedural states (ICD-10) ?Z87.81 - Personal history of (healed) traumatic fracture (ICD-10) Status post bunionectomy ?Z98.890 - Other specified postprocedural states (ICD-10) Status post appendectomy (08/18/09) ?Z90.49 - Acquired absence of other specified parts of digestive tract (ICD- 10) History of tonsillectomy and adenoidectomy ?Z90.89 - Acquired absence of other organs (ICD-10) History of spinal surgery (08/18/09) ?Z98.890 - Other specified postprocedural states (ICD-10) History of laparoscopic cholecystectomy (03/04/12) ?Z90.49 - Acquired absence of other specified parts of digestive tract (ICD- 10) Family History Mother Diverticulitis Father Osteoarthritis Social History Narrative: , non smoker, occasional alcohol consumption Smoking Status: Former smoker Do you use any of these nicotine containing products: None Second hand tobacco smoke exposure: No How often do you have a drink containing alcohol: 2-4 times a month AUDIT-C Alcohol total score: 2 Non-prescribed substance use: denies use Exam Narrative: Exam Narrative: Constitutional: Well-developed, well-nourished, no acute distress. HEENT: Normocephalic, atraumatic. Neck: Normal range of motion. Nontender. Supple. Heart: Regular. No murmurs. Normal rate. Intact distal pulses. Lungs: Clear to auscultation. No chest discomfort. No wheezes, rhonchi, or rales. Abdomen: Normal bowel sounds. Nontender. No rebound tenderness. Genitalia: Scrotal swelling with erythema. The posterior aspect has a small area where drainage has been occurring. No palpable abscess in the scrotum. Back: No midline tenderness. Normal range of motion. Extremities: Normal range of motion. Tender area in the left upper posterior leg with erythema and a central black eschar. No drainage. Skin: Intact. No rash. Warm. No erythema or pallor. Neurologic: No altered sensation. No weakness. Alert and oriented. Psychiatric: No suicidality. No anxiety or depression. No insomnia. Nursing notes and vitals signs are reviewed. Const: Vital Signs, click to edit/add: Vital Signs - 24 hr 07/14/25 14:36 Temperature 97.2 F L Pulse Rate [Pulse Oximeter] 78 Respiratory Rate 16 Blood Pressure [Ri ght Upper Arm] 127/79 Pulse Oximetry 95 Oxygen Delivery Me thod Room Air Course Vital Signs Vital signs: Initial Vital Signs Temperature 97.2 F L 07/14/25 14:36 Temperature Source Temporal Artery Scan 07/14/25 14:36 Pulse Rate 78 07/14/25 14:36 Respiratory Rate 16 07/14/25 14:36 Blood Pressure 127/79 07/14/25 14:36 Blood Pressure Mean 95 07/14/25 14:36 Blood Pressure Position Sitting 07/14/25 14:36 Pulse Oximetry 95 07/14/25 14:36 Oxygen Delivery Method Room Air 07/14/25 14:36 Vital Signs Temperature 97.2 F L 07/14/25 14:36 Pulse Rate 78 07/14/25 14:36 Respiratory Rate 16 07/14/25 14:36 Blood Pressure 127/79 07/14/25 14:36 Pulse Oximetry 95 07/14/25 14:36 Oxygen Delivery Method Room Air 07/14/25 14:36 Temperature 97.2 F L 07/14/25 14:36 Pulse Rate 78 07/14/25 14:36 Respiratory Rate 16 07/14/25 14:36 Blood Pressure 127/79 07/14/25 14:36 Pulse Oximetry 95 07/14/25 14:36 Oxygen Delivery Method Room Air 07/14/25 14:36 Medical Decision Making MDM Narrative Medical decision making narrative: This patient comes in with signs of infection in his scrotum and left upper leg. He has been taking Bactrim for 6 days but states that he would no longer has this medicine. He does not report any fevers. I did obtain ultrasound of both the scrotum and the upper leg and there is no sign of abscess that is drainable. He does have a small area where he is draining from his scrotum. I did obtain a wound culture from this area. There is possibility that this could be resistant organism and if so Bactrim would be a 1st line medicine but he has been taking this for 6 days now. He states that his scrotum is doing much better but his leg is screen tender helper and painful. I did prescribe clindamycin 300 mg t.i.d. and gave him instructions regarding signs and symptoms that would indicate a need for return re-evaluation. Discharge Plan Discharge Clinical Impression: Abscess of scrotum, Cutaneous abscess Patient Disposition: Home, Self-Care Condition: Stable Additional Instructions: take clindamycin as prescribed. Follow up with MD or return if symptoms are persistent or worsening. Prescriptions: New clindamycin HCl 300 mg capsule 300 mg PO TID Qty: 30 0RF No Action finasteride 5 mg tablet 5 mg PO DAILY psyllium husk [Metamucil] 0.4 gram capsule 0.8 g PO QDAY Qty: 60 5RF rosuvastatin 10 mg tablet 10 mg PO DAILY Qty: 90 3RF calcium carb, citrate-vit D3 [Citracal-D3 Slow Release] 600 mg-12.5 mcg (500 unit) tablet extended release 2 tab PO QDAY Qty: 180 3RF ibandronate 150 mg tablet 150 mg PO .q month Qty: 3 3RF ICaps AREDS2 (copper citrate) 250 mg-200 unit -12.5 mg-1 mg tablet 1 tab PO BID omeprazole 20 mg capsule,delayed release(DR/EC) 20 mg PO QDAY Qty: 90 1RF sertraline [Zoloft] 25 mg tablet 25 mg PO QDAY Qty: 90 1RF metformin 500 mg tablet extended release 24 hr 500 mg PO BID Qty: 180 1RF tadalafil 5 mg tablet 5 mg PO DAILY sulfamethoxazole-trimethoprim 800-160 mg tablet 1 tab PO Q12H carboxymethylcellulose sodium [Lubricant Dry Eye Relief] 1 % drops, liquid gel 1 drp ophthalmic (eye) DAILY tamsulosin 0.4 mg capsule 0.4 mg PO DAILY Qty: 90 3RF sennosides-docusate sodium [Stimulant Laxative Plus] 8.6-50 mg tablet 2 tab-cap PO QPM Qty: 60 2RF Follow Up/Referrals: Bob Gonzalez MD [Primary Care Provider, Family Practice] Stand Alone Forms: [facility] Info Instructions
--- NOTE | 2025-07-14 15:53 | CRLHL7_ITS ---
For Patients: As a result of the Cures Act, medical imaging exams and procedure reports are released immediately into your electronic medical record. You may view this report before your referring provider. If you have questions, please contact your health care provider. Indication: Redness, swelling, warmth Technique: Multiple transverse and longitudinal sonographic grayscale images of the soft tissues of the left lower extremity were obtained, supplemented with color Doppler imaging. Comparison: None. Findings: In the superficial soft tissues of the posteromedial lower left thigh, there is a small, infiltrative area of edema and hypervascularity. No discrete drainable fluid collection is seen. Impression: In the superficial soft tissues of the posteromedial lower left thigh, there is a small, infiltrative area of edema and hypervascularity. No discrete drainable fluid collection is seen. This is compatible with superficial soft tissue infection or inflammation with possible phlegmon/developing abscess. Dictated by Jayro Harris MD @ 07/14/2025 4:33:22 PM (Electronically Signed)
== END 2025-07-14 16:20 | disposition home or self-care (01) ==
PROVIDERS: Emergency Provider Emergency Medicine Emergency Medical Services; PCP Family Medicine
DX: L02.416 Cutaneous abscess of left lower limb (principal); N49.2 Inflammatory disorders of scrotum; N50.89 Other specified disorders of the male genital organs
CPT/HCPCS: 76870; 76882; 87070; 87186; 93976; 99284

== ENCOUNTER 2025-08-05 09:45 | Outpatient (CLI) | payer MEDICARE, OTHER, SELFPAY | END 2025-08-05 09:46 | disposition home or self-care (01) | LOC: LKVREF 09:46 | PROVIDERS: PCP Family Medicine; Visit Provider Family Medicine | DX: E11.9 Type 2 diabetes mellitus without complications (principal); E78.00 Pure hypercholesterolemia, unspecified | CPT/HCPCS: 80053; 80061; 82043; 82570 ==